=== PATIENT | female | born 1965 | race Caucasian/White ===

== ENCOUNTER 2016-09-05 11:42 | Outpatient (CLI) | payer OTHER ==
[~2016-09-05 11:42] MED LIST: ABILIFY5 MG PO; CYCLOBENZAPRINE10 MG PO; DHA PO; FOLIC ACID1 MG PO; GUMMI BEAR MULTIVITA PO; HYDROXYZINE HCL25 MG PO; OMEPRAZOLE20 M1 PO; PERCOCET1 TA2 PO; PROAIR HFA IN; VENLAFAXINE H37.5 M1 PO; VENTOLIN HFA IN; VITAMIN B GUMMY PO
--- NOTE | 2016-09-05 12:17 | DIAGNOSTIC IMAGING REPORT ---
PROCEDURE: XR CHEST 2 VIEW INDICATION: DISC DISEASE/PREOP/LOW BACK PX TECHNIQUE: PA and lateral views. COMPARISON: Abdominal CT dated 01/30/2016 FINDINGS: Lungs are clear. Heart and mediastinum are normal. Thorax is normal. IMPRESSION: 1. Negative chest.
== END 2016-09-05 23:00 ==
LOC: XR SRH 11:42
DX: Z01.811 Encounter for preprocedural respiratory examination (principal); M51.9 Unspecified thoracic, thoracolumbar and lumbosacral intervertebral disc disorder; M54.5 Low back pain